=== PATIENT | male | born 1985 | race African-American/Black ===

== ENCOUNTER 2025-07-08 10:15 | Emergency (ER) | payer OTHER ==
[~2025-07-08] VITALS: Ht 180.3 cm; Wt 110.2 kg
[2025-07-08] MEDS ORDERED: PENICILLIN V P500 MG PO (10:52)
[2025-07-08 11:36] VITALS: PULSE 73; RESP 18; TEMP 98.2; O2SAT 99
== END 2025-07-08 11:41 | disposition home or self-care (01) ==
LOC: ER 10:31
DX: K08.89 Other specified disorders of teeth and supporting structures (principal); K02.9 Dental caries, unspecified
CPT/HCPCS: 99283